=== PATIENT | female | born 2005 | race Hispanic/Latino ===

== ENCOUNTER 2025-05-05 22:28 | Inpatient (IN) | payer BC, SELFPAY ==
[2025-05-06 00:09] LABS: #Basophils 0.03 10x3/uL (0.0-0.2); #Eosinophils 0.10 10x3/uL (0.0-0.7); #Monocytes 1.08 10x3/uL (0.11-0.59); #Neutrophils 10.38 10x3/uL (1.40-6.50); %Basophils 0.2 % (0.0-1.0); %Eosinophils 0.7 % (0.0-10.0); %Lymphocytes 17.4 % (21.0-51.0); %Monocytes 7.6 % (0.0-10.0); %Neutrophils 73.4 % (42.0-75.0); Hematocrit 33.0 % (36.0-47.0); Hemoglobin 11.2 g/dL (12.0-16.0); Mean Corpuscular Hemoglobin 30.4 pg (27.0-31.0); Mean Corpuscular Volume 89.4 fL (78.0-98.0); Platelet Count 377 10x3/uL (130-400); Red Blood Cell (RBC) Count 3.69 mill/uL (4.20-5.40); White Blood Cell (WBC) Count 14.16 10x3/uL (4.8-10.8)
[2025-05-06 00:15] LABS: Bacteria/HPF None Seen HPF (None Seen); CAUTI Indications for Culture Pelvic or flank pain; Glucose, Urine (Dipstick) Normal (Negative); Leukocyte Negative Leu/uL (Negative); Protein, Urine (Dipstick) Negative (Neg-Trace); RBC/HPF 0-3 HPF (0-3); Specific Gravity, Urine 1.044 (1.002-1.036); WBC/HPF 0-3 HPF (0-3)
[2025-05-06 00:24] LABS: BHCG - Serum Negative (NEGATIVE); Pregs Control Background? CLEAR/WHITE (CLR/WHITE); Pregs Control Bar Appear? YES (CONTROL BAR)
[2025-05-06 00:30] LABS: Urine Culture Reflex No No
[2025-05-06 00:31] LABS: ALT (SGPT) 31 U/L (Less than 34); AST (SGOT) 36 U/L (11-34); Albumin 2.4 g/dL (3.1-4.5); Alkaline Phosphatase 158 U/L (40-110); Anion Gap 11 mmol/L (10-20); BUN (Urea Nitrogen) 8 mg/dL (7.0-18.7); Bilirubin, Total 0.2 mg/dL (0.3-1.2); Calc. Creatinine Clearance 0 mL/min (70-130); Calcium 8.7 mg/dL (7.8-10.44); Carbon Dioxide 24 mmol/L (22-29); Chloride 107 mmol/L (98-107); Globulin 4.5 g/dL (2.4-3.5); Glucose 91 mg/dL (70-105); Potassium 3.8 mmol/L (3.5-5.1); Sodium 138 mmol/L (136-145)
[2025-05-06] MEDS ORDERED: Calcium Carbonate 500 MG ChewTAB PO PRN (03:20)
[2025-05-06] MEDS ORDERED: Ondansetron PF 4 MG/2 ML Vial IVP PRN (03:20)
[2025-05-06] MEDS ORDERED: Electrolyte Replacement Protocol 1 EACH FS SCH (03:30)
[2025-05-06] MEDS ORDERED: cefTRIAXone (ROCEPHIN) 2 GM VIAL ONE (04:05)
[2025-05-06] MEDS ORDERED: Magnesium 2 GM/50 ML(in water) 2 GM in Premix 1 BAG IVPB PRN (04:15)
[2025-05-06] MEDS ORDERED: Potassium Chloride 20 MEQ in Premix 1 BAG IVPB PRN (04:15)
[2025-05-06] MEDS ORDERED: PHOS-NAK 1 PKT PACK PO PRN (04:15)
[2025-05-06 04:57] VITALS: BMI 18.6
[2025-05-06] MEDS: cefTRIAXone\\ROCEPHIN 1 GM in Sodium Chloride 0.9% 100 ML IVPB SCH (10:04)
[2025-05-06] MEDS ORDERED: Iopamidol 370 76% 100 ML VIAL ONE (10:39)
[2025-05-06] MEDS ORDERED: [UNRECOGNIZED DRUG - OTHER] PO SCH (10:45)
[2025-05-06] MEDS ORDERED: Sertraline 100 MG TAB PO SCH (10:45)
[2025-05-06] MEDS ORDERED: ETHINYL ESTRADIOL PO SCH (10:45)
[2025-05-06] MEDS ORDERED: DROSPIRENONE PO SCH (10:45)
[2025-05-06] MEDS: Acetaminophen 325 MG TAB PO PRN (23:49)
[2025-05-07 07:23] LABS: #Basophils 0.05 10x3/uL (0.0-0.2); #Eosinophils 0.13 10x3/uL (0.0-0.7); #Monocytes 0.65 10x3/uL (0.11-0.59); #Neutrophils 5.01 10x3/uL (1.40-6.50); %Basophils 0.6 % (0.0-1.0); %Eosinophils 1.6 % (0.0-10.0); %Lymphocytes 28.2 % (21.0-51.0); %Monocytes 7.9 % (0.0-10.0); %Neutrophils 60.7 % (42.0-75.0); Hematocrit 32.6 % (36.0-47.0); Hemoglobin 10.7 g/dL (12.0-16.0); Mean Corpuscular Hemoglobin 30.4 pg (27.0-31.0); Mean Corpuscular Volume 92.6 fL (78.0-98.0); Platelet Count 424 10x3/uL (130-400); Red Blood Cell (RBC) Count 3.52 mill/uL (4.20-5.40); White Blood Cell (WBC) Count 8.24 10x3/uL (4.8-10.8)
[2025-05-07 07:45] LABS: ALT (SGPT) 21 U/L (Less than 34); AST (SGOT) 16 U/L (11-34); Albumin 2.2 g/dL (3.1-4.5); Alkaline Phosphatase 130 U/L (40-110); Anion Gap 14 mmol/L (10-20); BUN (Urea Nitrogen) 5 mg/dL (7.0-18.7); Bilirubin, Total 0.2 mg/dL (0.3-1.2); Calc. Creatinine Clearance 128 mL/min (70-130); Calcium 8.6 mg/dL (7.8-10.44); Carbon Dioxide 20 mmol/L (22-29); Chloride 109 mmol/L (98-107); Globulin 4.2 g/dL (2.4-3.5); Glucose 90 mg/dL (70-105); Potassium 3.9 mmol/L (3.5-5.1); Sodium 139 mmol/L (136-145)
[2025-05-07] MEDS ORDERED: Sertraline 25 MG TAB PO SCH (09:00)
[2025-05-07] MEDS: cefTRIAXone\\ROCEPHIN 2 GM in Sodium Chloride 0.9% 100 ML IVPB SCH (10:02)
[2025-05-07] MEDS: DC Electrolyte Protocol FS ONE (21:50)
[2025-05-08 08:36] VITALS: BP 87/48; TEMP 98
[2025-05-08 08:56] LABS: #Basophils 0.05 10x3/uL (0.0-0.2); #Eosinophils 0.10 10x3/uL (0.0-0.7); #Monocytes 0.47 10x3/uL (0.11-0.59); #Neutrophils 5.76 10x3/uL (1.40-6.50); %Basophils 0.6 % (0.0-1.0); %Eosinophils 1.2 % (0.0-10.0); %Lymphocytes 24.0 % (21.0-51.0); %Monocytes 5.6 % (0.0-10.0); %Neutrophils 68.0 % (42.0-75.0); Hematocrit 34.2 % (36.0-47.0); Hemoglobin 11.3 g/dL (12.0-16.0); Mean Corpuscular Hemoglobin 29.9 pg (27.0-31.0); Mean Corpuscular Volume 90.5 fL (78.0-98.0); Platelet Count 472 10x3/uL (130-400); Red Blood Cell (RBC) Count 3.78 mill/uL (4.20-5.40); White Blood Cell (WBC) Count 8.46 10x3/uL (4.8-10.8)
[2025-05-08] MEDS: Ciprofloxacin 500 MG TAB PO SCH (09:19)
[2025-05-08 09:22] LABS: Anion Gap 13 mmol/L (10-20); BUN (Urea Nitrogen) 9 mg/dL (7.0-18.7); Calc. Creatinine Clearance 117 mL/min (70-130); Calcium 9.1 mg/dL (7.8-10.44); Carbon Dioxide 22 mmol/L (22-29); Chloride 107 mmol/L (98-107); Glucose 80 mg/dL (70-105); Potassium 3.9 mmol/L (3.5-5.1); Sodium 138 mmol/L (136-145)
[2025-05-08] MEDS ORDERED: Ciprofloxacin 500 MG TAB PO SCH (20:00)
== END 2025-05-08 16:32 | disposition home or self-care (01) | DRG 872 ==
LOC: ERS 22:28 → T4-B 05-06 03:30 → OBSVTOIN 05-06 10:11
PROVIDERS: ADMIT Student in an Organized Health Care Education/Training Program; ATTEND Internal Medicine
DX: A41.9 Sepsis, unspecified organism (principal); N12 Tubulo-interstitial nephritis, not specified as acute or chronic; E87.20 Acidosis, unspecified; E44.0 Moderate protein-calorie malnutrition; Z68.1 Body mass index [BMI] 19.9 or less, adult; F41.9 Anxiety disorder, unspecified; F32.A Depression, unspecified; D64.9 Anemia, unspecified; Z79.899 Other long term (current) drug therapy; D75.839 Thrombocytosis, unspecified
CPT/HCPCS: 36415; 71045; 71275; 74183; 76770; 80048; 80053; 81001; 84484; 84703; 85025; 86141; 87077; 87086; 87186; 93005; 96365; 96376; G0378; J0696; J7030; Q9967